=== PATIENT | female | born 1950 | race Caucasian/White ===

== ENCOUNTER → 2019-03-28 | Outpatient (CLI) | payer MEDICARE ==
--- NOTE | 2019-03-28 10:14 | Diagnostic Imaging Report ---
EXAM: US ABDOMEN COMPLETE DATE: 03/28/2019 9:01 AM Time stamp on exam: INDICATION: Epigastric pain COMPARISON: None TECHNIQUE: Transverse and longitudinal carrillo scale and color doppler sonographic images of the upper abdomen were obtained. FINDINGS: LIVER 11.6 cm in the right midclavicular line. Normal echogenicity, normal contour, no masses. SPLEEN 6.9 cm in maximum diameter. Normal echogenicity, no masses. GALLBLADDER No stones, sludge, wall-thickening or pericholecystic fluid. Negative sonographic Glez's sign. BILE DUCTS No intra nor extra-hepatic biliary dilation. Common bile duct measures 0.2 cm PANCREAS: Visualized portions are normal. RIGHT KIDNEY: 9 cm Echogenicity: Increased Collecting System: No hydronephrosis Stones: None Cyst/Mass: None LEFT KIDNEY: 9.7 cm Echogenicity: Increased Collecting System: No hydronephrosis Stones: None Cyst/Mass: None VESSELS: Aorta: Nonaneurysmal with calcified atherosclerotic plaque. Inferior Vena Cava: Visualized portions are normal Main Portal Vein: 0.8 cm, normal size with hepatopetal flow. FREE FLUID: None IMPRESSION: Increased renal cortical echogenicity may be seen in the setting of medical renal disease. Unremarkable sonographic appearance of the liver and gallbladder. Signed by: Dr. Den Ventura M.D. on 03/28/2019 10:10 AM
== END ==
LOC: US 08:54
PROVIDERS: ATTEND Internal Medicine Gastroenterology
DX: R10.13 Epigastric pain (principal); I10 Essential (primary) hypertension
CPT/HCPCS: 76700

== ENCOUNTER 2024-03-15 14:56 | Outpatient (RCR) | payer OTHER | END 2024-03-27 | LOC: OT 14:56 | PROVIDERS: ATTEND Plastic Surgery | DX: S62.616D Displaced fracture of proximal phalanx of right little finger, subsequent encounter for fracture with routine healing (principal); M79.641 Pain in right hand; M25.641 Stiffness of right hand, not elsewhere classified ==

== ENCOUNTER 2024-05-22 15:53 | Outpatient (RCR) | payer OTHER | END 2024-05-27 | LOC: OT 15:53 | PROVIDERS: ATTEND Plastic Surgery | DX: S62.616D Displaced fracture of proximal phalanx of right little finger, subsequent encounter for fracture with routine healing (principal); M79.641 Pain in right hand; M25.641 Stiffness of right hand, not elsewhere classified ==

== ENCOUNTER 2024-05-29 06:59 | Outpatient (RCR) | payer OTHER | END 2024-06-27 | LOC: OT 06:59 | PROVIDERS: ATTEND Plastic Surgery | DX: S62.616D Displaced fracture of proximal phalanx of right little finger, subsequent encounter for fracture with routine healing (principal); M79.641 Pain in right hand; M25.641 Stiffness of right hand, not elsewhere classified ==

== ENCOUNTER 2024-08-20 16:00 | Outpatient (RCR) | payer OTHER | END 2024-08-27 | LOC: OT 16:00 | PROVIDERS: ATTEND Plastic Surgery | DX: S62.616D Displaced fracture of proximal phalanx of right little finger, subsequent encounter for fracture with routine healing (principal); M79.641 Pain in right hand; M25.641 Stiffness of right hand, not elsewhere classified ==